=== PATIENT | female | born 1990 | race African-American/Black ===

== ENCOUNTER 2017-04-11 08:19 | Emergency (ER) | payer OTHER ==
[~2017-04-11] VITALS: Ht 172.7 cm; Wt 100.0 kg
[~2017-04-11 08:19] MED LIST: AMITRIPTYLIN10 MG PO; AMOXICILLIN500 MG PO; ANUSOL-HC2.5 % EX; AUGMENTIN875TAB PO; BACTRIM DS1 TAB; BACTRIM DS1 TAB PO; CEPHALEXIN500 MG PO; CIPROFLOXACN500 MG PO; DOXYCYCL HYC100 MG PO; FIORICET PO; FLUCONAZOLE150 MG PO; HYDROCO/APAP1 TA9 OR; KEFLEX500 M1 PO; KEFLEX500 MG OR; KEFLEX500 MG PO; LORTAB 10-325 M1 TAB PO; LORTAB 7.57.5 MG PO; MUPIROCIN2 % EX; NAPROSYN500 MG PO; PENICILLN VK500 MG PO; PRILOSEC40 MG PO; PROMETHAZINE HC25 MG PO; SUMATRIPTAN25 MG PO; UNKNOWN DIURETIC; ZOMIG ZMT5 MG PO
[2017-04-11] MEDS ORDERED: FIORICET PO (10:54)
[2017-04-11 11:06] VITALS: BP 129/78
== END 2017-04-11 11:10 | disposition home or self-care (01) | DRG 103 ==
LOC: ED 08:19
DX: G43.909 Migraine, unspecified, not intractable, without status migrainosus (principal)

== ENCOUNTER 2017-05-19 14:09 | Emergency (ER) | payer OTHER ==
[~2017-05-19] VITALS: Ht 172.7 cm; Wt 99.6 kg
[2017-05-19 16:22] VITALS: BP 118/75
== END 2017-05-19 16:36 | disposition home or self-care (01) | DRG 556 ==
LOC: ED 14:09
DX: M79.89 Other specified soft tissue disorders (principal)

== ENCOUNTER 2017-08-29 20:28 | Emergency (ER) | payer OTHER ==
[~2017-08-29] VITALS: Ht 172.7 cm; Wt 122.0 kg
[2017-08-29] MEDS ORDERED: FIORICET PO (20:53)
[2017-08-29] MEDS ORDERED: LORTAB 10-325 M1 TAB PO (21:10)
[2017-08-29 22:08] VITALS: BP 134/86
== END 2017-08-29 22:00 | disposition home or self-care (01) | DRG 103 ==
LOC: ED 20:28
DX: G43.909 Migraine, unspecified, not intractable, without status migrainosus (principal); H53.8 Other visual disturbances; R11.0 Nausea

== ENCOUNTER 2017-10-01 09:36 | Emergency (ER) | payer OTHER ==
[~2017-10-01] VITALS: Ht 172.7 cm; Wt 100.0 kg
[2017-10-01] MEDS ORDERED: SB CLOTRIMAZ1 % EX (10:00)
[2017-10-01] MEDS ORDERED: DIFLUCAN150 MG PO (10:00)
[2017-10-01 10:13] VITALS: BP 107/69
== END 2017-10-01 10:13 | disposition home or self-care (01) | DRG 607 ==
LOC: ED 09:36
DX: B35.3 Tinea pedis (principal); M79.671 Pain in right foot; M79.672 Pain in left foot

== ENCOUNTER 2018-05-24 20:23 | Emergency (ER) | payer OTHER ==
[~2018-05-24] VITALS: Ht 172.7 cm; Wt 97.7 kg
[~2018-05-24 20:23] MED LIST changes: +DIFLUCAN150 MG PO; +SB CLOTRIMAZ1 % EX
[2018-05-24] MEDS ORDERED: FIORICET PO (21:38)
[2018-05-24 21:40] VITALS: BP 140/73
== END 2018-05-24 21:45 | disposition home or self-care (01) ==
LOC: ED 20:23
DX: G43.909 Migraine, unspecified, not intractable, without status migrainosus (principal); R42 Dizziness and giddiness; R53.1 Weakness

== ENCOUNTER → 2018-08-24 | Outpatient (REF) | payer OTHER | END | disposition home or self-care (01) | LOC: LAB 11:20 | PROVIDERS: ATTEND Obstetrics & Gynecology | DX: O36.80X9 Pregnancy with inconclusive fetal viability, other fetus (principal) ==

== ENCOUNTER 2019-01-10 10:24 | Emergency (ER) | payer OTHER ==
[~2019-01-10] VITALS: Ht 170.2 cm; Wt 114.8 kg
[2019-01-10] MEDS ORDERED: PRE-NATAL PO (10:36)
[2019-01-10 10:50] LABS: URINE BILIRUBIN - DIPSTICK NEGATIVE (NEGATIVE); URINE BLOOD DIPSTICK LARGE (NEGATIVE); URINE COLOR YELLOW; URINE GLUCOSE - DIPSTICK NEGATIVE (NEGATIVE); URINE KETONE NEGATIVE (NEGATIVE); URINE NITRITE - DIPSTICK NEGATIVE (Negative); URINE PROTEIN - DIPSTICK TRACE mg/dL (NEG-TRACE); URINE UROBILINOGEN - DIPSTICK 0.2 E.U./dL (0.2)
[2019-01-10 10:51] LABS: URINE BACTERIA MODERATE hpf; URINE EPITHELIAL CELLS MODERATE EPI/hpf (0-FEW); URINE LEUK ESTERASE LARGE (NEGATIVE); URINE RBC 25-50 RBC/hpf (0-5); URINE WBC 20-50 WBC/hpf (0-5)
[2019-01-10] MEDS ORDERED: KEFLEX500 MG PO (11:11)
[2019-01-10 11:14] VITALS: BP 111/73
== END 2019-01-10 11:18 | disposition home or self-care (01) ==
LOC: ED 10:24
PROVIDERS: Emergency Medicine
DX: O23.43 Unspecified infection of urinary tract in pregnancy, third trimester (principal); B96.20 Unspecified Escherichia coli [E. coli] as the cause of diseases classified elsewhere; Z3A.33 33 weeks gestation of pregnancy; R30.0 Dysuria

== ENCOUNTER 2020-07-04 12:19 | Emergency (ER) | payer OTHER ==
[~2020-07-04] VITALS: Ht 170.2 cm; Wt 104.5 kg
[~2020-07-04 12:19] MED LIST changes: +PRE-NATAL PO
[2020-07-04] MEDS ORDERED: PHENERGAN25 MG/TAB PO (12:39)
[2020-07-04] MEDS ORDERED: FERR SULFATE325 MG PO (12:40)
[2020-07-04 13:16] LABS: URINE BILIRUBIN - DIPSTICK NEGATIVE (NEGATIVE); URINE BLOOD DIPSTICK NEGATIVE (NEGATIVE); URINE COLOR YELLOW; URINE GLUCOSE - DIPSTICK NEGATIVE (NEGATIVE); URINE KETONE NEGATIVE (NEGATIVE); URINE LEUK ESTERASE NEGATIVE (NEGATIVE); URINE NITRITE - DIPSTICK NEGATIVE (Negative); URINE PROTEIN - DIPSTICK NEGATIVE (NEG-TRACE); URINE SPECIFIC GRAVITY 1.025
[2020-07-04 13:17] LABS: HEMATOCRIT 33.7 % (37.0-47.0); HEMOGLOBIN 10.2 g/dl (12.0-16.0); IMMATURE GRANULOCYTES 0.4 % (0.0-5.0); MEAN CELL VOLUME 89.4 fL CALC (80.0-100.0); MEAN CORPUSCULAR HGB 27.1 pG CALC (26.0-32.0); MEAN CORPUSCULAR HGB CONC 30.3 g/dL CAL (32.0-36.0); NEUT# 4.66 thou/uL (2.00-7.15); RED BLOOD COUNT 3.77 mill/uL (4.20-5.60); RED CELL DISTRI WIDTH 12.9 % (11.5-15.5)
[2020-07-04 13:18] LABS: HCG SERUM/URINE (NEG/POS) NEGATIVE (NEGATIVE)
[2020-07-04 13:32] LABS: ALBUMIN 4.1 g/dL (3.2-5.0); ALKALINE PHOSPHATASE 74 u/l (38-126); ANION GAP 9 (6-22 (CALC)); BILIRUBIN, TOTAL 0.6 mg/dL (0.0-1.4); BUN 8 mg/dL (7-17); BUN/CREATININE RATIO 15 (12-20 (CALC)); C-REACTIVE PROTEIN 5.8 mg/dL (0-0.9); CARBON DIOXIDE 24 mmol/l (22-30); CHLORIDE 105 mmol/l (95-108); CREATININE 0.6 mg/dL (0.5-1.0); GFR > 60 ML/MIN (>=60 (CALC)); GFR FOR AFR.AMER. > 60 ML/MIN (>=60 (CALC)); LIPASE 37 u/l (23-300); POTASSIUM 3.7 mmol/l (3.5-5.1); SGOT/AST 19 u/l (14-36); SODIUM 135 mmol/l (137-146); TOTAL PROTEIN 7.4 g/dL (6.3-8.2)
[2020-07-04] MEDS ORDERED: AMOXICILLIN875 MG PO (15:36)
[2020-07-04] MEDS ORDERED: FIORICET PO (15:41)
[2020-07-04 16:21] VITALS: BP 133/76
== END 2020-07-04 16:05 | disposition home or self-care (01) ==
LOC: ED 12:19
DX: G43.909 Migraine, unspecified, not intractable, without status migrainosus (principal); J02.0 Streptococcal pharyngitis; Z20.828 Contact with and (suspected) exposure to other viral communicable diseases
CPT/HCPCS: Q9967

== ENCOUNTER 2021-04-17 10:16 | Emergency (ER) | payer OTHER ==
[~2021-04-17] VITALS: Ht 172.7 cm; Wt 100.0 kg
[~2021-04-17 10:16] MED LIST changes: +AMOXICILLIN875 MG PO; +FERR SULFATE325 MG PO; +PHENERGAN25 MG/TAB PO
[2021-04-17 12:55] VITALS: BP 116/72
== END 2021-04-17 12:56 | disposition home or self-care (01) ==
LOC: ED 10:16
DX: G43.909 Migraine, unspecified, not intractable, without status migrainosus (principal); M79.672 Pain in left foot; R60.0 Localized edema

== ENCOUNTER 2021-11-24 09:48 | Emergency (ER) | payer OTHER ==
[~2021-11-24] VITALS: Ht 172.7 cm; Wt 98.0 kg
[2021-11-24 12:25] VITALS: BP 119/71
[2021-11-24] MEDS ORDERED: SUMATRIPTAN25 MG PO (13:07)
== END 2021-11-24 12:25 | disposition home or self-care (01) ==
LOC: ED 09:48
DX: R51.9 Headache, unspecified (principal); R09.89 Other specified symptoms and signs involving the circulatory and respiratory systems; Z20.822 Contact with and (suspected) exposure to COVID-19

== ENCOUNTER 2021-12-26 09:56 | Emergency (ER) | payer OTHER ==
[~2021-12-26] VITALS: Ht 172.7 cm; Wt 80.0 kg
[2021-12-26 10:00] VITALS: BP 112/76
[2021-12-26 10:19] LABS: URINE BILIRUBIN - DIPSTICK NEGATIVE (NEGATIVE); URINE BLOOD DIPSTICK NEGATIVE (NEGATIVE); URINE COLOR YELLOW; URINE GLUCOSE - DIPSTICK NEGATIVE (NEGATIVE); URINE KETONE NEGATIVE (NEGATIVE); URINE LEUK ESTERASE SMALL (NEGATIVE); URINE NITRITE - DIPSTICK NEGATIVE (Negative); URINE PROTEIN - DIPSTICK NEGATIVE (NEG-TRACE); URINE SPECIFIC GRAVITY 1.025; URINE UROBILINOGEN - DIPSTICK 0.2 E.U./dL (0.2)
[2021-12-26 10:34] LABS: URINE SQUAMOUS EPITHELIAL CELL FEW EPI/hpf (0-FEW); URINE WBC 0-2 WBC/hpf (0-5)
[2021-12-26] MEDS ORDERED: ONDANSETRON4 MG PO (10:57)
[2021-12-26] MEDS ORDERED: NITROFURANTN100 M2 PO (10:57)
[2021-12-26] MEDS ORDERED: AMOX/K CLAV875 M1 PO (11:22)
== END 2021-12-26 11:31 | disposition home or self-care (01) ==
LOC: ED 09:56
PROVIDERS: Family Medicine
DX: A64 Unspecified sexually transmitted disease (principal); N39.0 Urinary tract infection, site not specified; K08.89 Other specified disorders of teeth and supporting structures
CPT/HCPCS: J0561

== ENCOUNTER 2022-04-26 09:59 | Emergency (ER) | payer OTHER ==
[~2022-04-26] VITALS: Ht 172.7 cm; Wt 99.4 kg
[~2022-04-26 09:59] MED LIST changes: +AMOX/K CLAV875 M1 PO; +NITROFURANTN100 M2 PO; +ONDANSETRON4 MG PO
[2022-04-26] MEDS ORDERED: KEFLEX500 MG PO (10:20)
[2022-04-26] MEDS ORDERED: ULTRAM50 MG PO (10:20)
[2022-04-26 11:26] VITALS: BP 108/77
== END 2022-04-26 11:20 | disposition home or self-care (01) ==
LOC: ED 09:59
DX: K08.89 Other specified disorders of teeth and supporting structures (principal)

== ENCOUNTER 2022-08-12 20:21 | Emergency (ER) | payer OTHER ==
[~2022-08-12] VITALS: Ht 172.7 cm; Wt 97.0 kg
[~2022-08-12 20:21] MED LIST changes: +ULTRAM50 MG PO
[2022-08-12 20:29] VITALS: BP 140/73
[2022-08-12 21:10] LABS: URINE BILIRUBIN - DIPSTICK NEGATIVE (NEGATIVE); URINE BLOOD DIPSTICK NEGATIVE (NEGATIVE); URINE COLOR YELLOW; URINE GLUCOSE - DIPSTICK NEGATIVE (NEGATIVE); URINE KETONE NEGATIVE (NEGATIVE); URINE LEUK ESTERASE TRACE (NEGATIVE); URINE PROTEIN - DIPSTICK NEGATIVE (NEG-TRACE); URINE SPECIFIC GRAVITY >=1.030
[2022-08-12 21:13] LABS: URINE NITRITE - DIPSTICK NEGATIVE (Negative)
[2022-08-12 21:55] LABS: HEMATOCRIT 32.9 % (37.0-47.0); HEMOGLOBIN 9.9 g/dl (12.0-16.0); MEAN CELL VOLUME 90.4 fL CALC (80.0-100.0); MEAN CORPUSCULAR HGB 27.2 pG CALC (26.0-32.0); MEAN CORPUSCULAR HGB CONC 30.1 g/dL CAL (32.0-36.0); NEUT# 2.41 thou/uL (2.00-7.15); RED BLOOD COUNT 3.64 mill/uL (4.20-5.60); RED CELL DISTRI WIDTH 13.2 % (11.5-15.5)
[2022-08-12 22:07] LABS: ALKALINE PHOSPHATASE 73 u/l (38-126); BUN 15 mg/dL (7-17); BUN/CREATININE RATIO 20 (12-20 (CALC)); CHLORIDE 107 mmol/l (95-108); CREATININE 0.7 mg/dL (0.5-1.0); GFR FOR AFR.AMER. > 60 ML/MIN (>=60 (CALC)); GFR OTHER RACES > 60 ML/MIN (>=60 (CALC)); LIPASE 80 u/l (23-300); POTASSIUM 3.7 mmol/l (3.5-5.1); SGOT/AST 22 u/l (14-36); SODIUM 136 mmol/l (137-146); TOTAL PROTEIN 7.4 g/dL (6.3-8.2)
[2022-08-12 22:11] LABS: ANION GAP 13 (6-22 (CALC)); BILIRUBIN, TOTAL 0.3 mg/dL (0.0-1.4); CARBON DIOXIDE 20 mmol/l (22-30)
[2022-08-12] MEDS ORDERED: OMEPRAZOLE DR40 MG PO (22:38)
[2022-08-12] MEDS ORDERED: CITRATE OF MEGNESIA PO (22:38)
[2022-08-12 23:15] VITALS: BP 140/73
== END 2022-08-12 23:15 | disposition home or self-care (01) ==
LOC: ED 20:21
PROVIDERS: Family Medicine
DX: K29.70 Gastritis, unspecified, without bleeding (principal)
CPT/HCPCS: S0164

== ENCOUNTER 2023-06-15 09:25 | Emergency (ER) | payer OTHER ==
[~2023-06-15] VITALS: Ht 172.7 cm; Wt 98.0 kg
[~2023-06-15 09:25] MED LIST changes: +CITRATE OF MEGNESIA PO; +OMEPRAZOLE DR40 MG PO
[2023-06-15 09:59] VITALS: BP 142/82
[2023-06-15] MEDS ORDERED: AMOX/K CLAV875 M1 PO (11:09)
== END 2023-06-15 11:31 | disposition home or self-care (01) ==
LOC: ED 09:25
DX: K04.7 Periapical abscess without sinus (principal); K02.9 Dental caries, unspecified; S02.5XXA Fracture of tooth (traumatic), initial encounter for closed fracture; X58.XXXA Exposure to other specified factors, initial encounter

== ENCOUNTER 2024-07-31 22:26 | Emergency (ER) | payer OTHER ==
[~2024-07-31] VITALS: Ht 172.7 cm; Wt 70.0 kg
[2024-07-31 22:47] VITALS: BP 119/63
[2024-07-31 23:01] VITALS: BP 116/58
[2024-07-31] MEDS ORDERED: DEXAMETHASONE SOD. PHOSPHATE 10 MG/ML VIAL IV ONE (23:05)
[2024-07-31] MEDS ORDERED: KETOROLAC TROMETHAMINE 30 MG/ML SDV IV ONE (23:05)
[2024-07-31] MEDS ORDERED: METOCLOPRAMIDE HCL 10 MG/2 ML SDV IV ONE (23:05)
[2024-07-31] MEDS ORDERED: SODIUM CHLORIDE 0.9% 1,000 ML IV ONE (23:05)
[2024-07-31 23:16] VITALS: BP 111/88
[2024-07-31 23:19] LABS: BASO% 0.2 % (0-3); HEMATOCRIT 31.4 % (37.0-47.0); HEMOGLOBIN 9.9 g/dl (12.0-16.0); IMMATURE GRANULOCYTES 0.4 % (0.0-5.0); LYMPH% 2.1 % (15-41); MEAN CELL VOLUME 86.7 fL CALC (80.0-100.0); MEAN CORPUSCULAR HGB 27.3 pG CALC (26.0-32.0); MEAN CORPUSCULAR HGB CONC 31.5 g/dL CAL (32.0-36.0); MONO% 5.6 % (2-13); NEUT# 14.66 thou/uL (2.00-7.15); NEUT% 91.7 % (42-76); RED BLOOD COUNT 3.62 mill/uL (4.20-5.60)
[2024-07-31 23:44] LABS: ALBUMIN 4.2 g/dL (3.2-5.0); CREATININE 0.8 mg/dL (0.5-1.0); POTASSIUM 3.7 mmol/l (3.5-5.1); TOTAL PROTEIN 7.7 g/dL (6.3-8.2)
[2024-07-31 23:46] LABS: BILIRUBIN, TOTAL 0.8 mg/dL (0.02-1.3)
[2024-08-01 00:16] LABS: URINE BILIRUBIN - DIPSTICK Negative (NEGATIVE); URINE BLOOD DIPSTICK Moderate (NEGATIVE); URINE COLOR Yellow; URINE GLUCOSE - DIPSTICK Negative (NEGATIVE); URINE KETONE Negative (NEGATIVE); URINE NITRITE - DIPSTICK Negative (Negative); URINE PROTEIN - DIPSTICK Negative (NEG-TRACE); URINE UROBILINOGEN - DIPSTICK 0.2 E.U./dL (0.2)
[2024-08-01 00:17] LABS: URINE LEUK ESTERASE Negative (NEGATIVE)
[2024-08-01 00:26] LABS: URINE BACTERIA FEW hpf; URINE EPITHELIAL CELLS FEW EPI/hpf (0-FEW)
[2024-08-01] MEDS ORDERED: MOTRIN800 MG PO (00:40)
[2024-08-01] MEDS ORDERED: REGLAN10 MG PO (00:40)
[2024-08-01 01:07] VITALS: BP 111/88
== END 2024-08-01 01:16 | disposition home or self-care (01) ==
LOC: ED 22:26
PROVIDERS: Emergency Medicine
DX: G43.909 Migraine, unspecified, not intractable, without status migrainosus (principal); Z20.822 Contact with and (suspected) exposure to COVID-19

== ENCOUNTER 2024-10-15 17:35 | Emergency (ER) | payer OTHER ==
[~2024-10-15] VITALS: Ht 172.7 cm; Wt 100.0 kg
[~2024-10-15 17:35] MED LIST changes: +MOTRIN800 MG PO; +REGLAN10 MG PO
[2024-10-15] MEDS ORDERED: SULFAMETHOXAZOLE W/TRIMETHOPRI 1 COMBO TAB PO STA (18:53)
[2024-10-15] MEDS ORDERED: POVIDONE IODINE 0.5 OZ/BTL TOP STA (18:53)
[2024-10-15] MEDS ORDERED: HYDROcodone 5 MG/Acetaminophen 325 MG/COMBO PO STA (19:39)
[2024-10-15] MEDS ORDERED: cefTRIAXone SODIUM 1 GM/VIAL SDV IM STA (19:39)
[2024-10-15] MEDS ORDERED: LIDOcaine HCl 1% (Local Anesth.) 20 ML VIAL IM STA (19:40)
[2024-10-15] MEDS ORDERED: BACTRIM DS1 TAB PO (19:42)
[2024-10-15] MEDS ORDERED: KEFLEX500 MG PO (19:42)
[2024-10-15] MEDS ORDERED: TRAMADOL HYDROC50 M1 PO (19:48)
[2024-10-15 20:05] VITALS: BP 119/72
[2024-10-15 20:30] VITALS: BP 137/77
[2024-10-15 20:52] VITALS: BP 137/77
== END 2024-10-15 21:07 | disposition home or self-care (01) ==
LOC: ED 17:35
DX: L02.415 Cutaneous abscess of right lower limb (principal); L03.115 Cellulitis of right lower limb